=== PATIENT | female | born 1970 | race Caucasian/White ===

== ENCOUNTER 2019-09-24 07:02 | Inpatient (IN) | payer MEDICAID ==
[2019-09-24] VITALS (15 sets, daily range): BP systolic 101–128; BP diastolic 54–75
[~2019-09-24] VITALS: Ht 162.6 cm; Wt 91.1 kg
[2019-09-24] MEDS ORDERED: SPIR50 PO (07:17)
[2019-09-24] MEDS ORDERED: PARO10TA89 PO (07:17)
[2019-09-24] MEDS ORDERED: LABE100T8 PO (07:17)
[2019-09-24 07:48] LABS: BASOPHILS % (AUTO) 0.3 % (0.0-2.0); EOSINOPHILS % (AUTO) 0.9 % (1.0-6.0); HEMATOCRIT 23.2 % (36-46); HEMOGLOBIN 8.4 g/dL (12.0-16.0); LYMPHOCYTES # (AUTO) 0.7 K/uL (1.0-4.8); LYMPHOCYTES % (AUTO) 7.3 % (22.0-44.0); MEAN CORPUSCULAR HEMOGLOBIN 38.8 pg (26.0-34.0); MEAN CORPUSCULAR VOLUME 108 fL (80-100); MONOCYTES # (AUTO) 0.9 K/uL (0.1-1.0); MONOCYTES % (AUTO) 8.5 % (2.0-9.0); NEUTROPHILS # (AUTO) 8.4 K/uL (1.8-7.7); RED BLOOD CELL COUNT(AUTO) 2.15 MIL/uL (4.00-5.20); RED CELL DISTRIBUTION WIDTH 14.7 % (11.5-14.5)
[2019-09-24 07:57] LABS: ANION GAP 8 mmol/L (8-16); CALCIUM, TOTAL 8.1 mg/dL (8.8-10.5); CARBON DIOXIDE 23 mmol/L (22-29); CHLORIDE 103 mmol/L (98-107); CREATININE 0.94 mg/dL (0.60-1.30); GLOMERULAR FILTR. RATE CALC > 60 mL/min (>60); GLUCOSE,RANDOM 73 mg/dL (70-110); POTASSIUM 4.1 mmol/L (3.5-5.1); SODIUM SERUM 134 mmol/L (136-145); UREA NITROGEN, BLOOD 31 mg/dL (7-18)
[2019-09-24 08:03] LABS: INR 2.5 (0.9-1.1); PROTHROMBIN TIME 25.6 SEC (9.4-11.6)
[2019-09-24 08:05] LABS: TROPONIN I 0.52 ng/mL (0.00-0.05)
[2019-09-24 08:10] LABS: ALANINE AMINOTRANSFERASE 48 U/L (12-78); ALBUMIN 1.6 g/dL (3.4-5.0); ALKALINE PHOSPHATASE 117 U/L (46-116); ASPARTATE AMINOTRANSFERASE 84 U/L (15-37); BILIRUBIN,TOTAL 13.8 mg/dL (0.1-1.0); HCG,QUANTITATIVE < 1 mIU/mL (0-6); TOTAL PROTEIN, SERUM 5.7 g/dL (6.4-8.2)
[2019-09-24] MEDS ORDERED: 0.9% SODIUM CHLORIDE 10 ML SYRINGE IVP PRN (08:15)
[2019-09-24] MEDS ORDERED: MORPHINE SULFATE 4 MG/ML SYRINGE IVP PRN (08:15)
[2019-09-24 08:18] LABS: PLATELET COUNT (AUTO) 33 K/uL (150-450)
[2019-09-24] MEDS ORDERED: ONDANSETRON HCL 4 MG/2 ML VIAL IVP PRN (08:30)
[2019-09-24] MEDS ORDERED: ACETAMINOPHEN 325 MG TABLET PO PRN (08:30)
[2019-09-24] MEDS ORDERED: BISACODYL 10 MG RECTAL RECTAL SUPPOSITORY PR PRN (08:30)
[2019-09-24] MEDS: PHYTONADIONE 10 MG/1 ML AMP SQ SCH (08:57)
[2019-09-24] MEDS: PANTOPRAZOLE SODIUM 40 MG/VIAL IVP SCH (08:57)
[2019-09-24] MEDS ORDERED: SODIUM CHLORIDE 0.9% 1,000 ML IV ONE (12:15)
[2019-09-24 13:23] LABS: APPEARANCE,URINE CLOUDY (CLEAR); GLUCOSE, URINE (UA) NEGATIVE (NEGATIVE); KETONES,URINE 15 mg/dL (NEGATIVE); LEUKOCYTE ESTERASE ,URINE LARGE (NEGATIVE); NITRATE,URINE POSITIVE (NEGATIVE); OCCULT BLOOD,URINE LARGE (NEGATIVE); PH,URINE 5.5 (5.0-8.0); PROTEIN,URINE TRACE (NEGATIVE); UROBILINOGEN,URINE >=8.0 mg/dL (<=1.0)
[2019-09-24 13:26] LABS: BILIRUBIN,URINE PRELIM. POSITIVE (NEGATIVE)
[2019-09-24 13:29] LABS: BACTERIA,URINE Many /HPF (None Seen)
[2019-09-24 13:30] LABS: SQUAMOUS EPITHELIAL CELL,UR Few /LPF (None Seen)
[2019-09-24] MEDS ORDERED: DEXTROSE 50%-WATER 25 GM/50 ML SYRINGE IVP ONE ×2 (16:17→16:18)
[2019-09-24 16:27] LABS: GLUCOSE,POINT OF CARE 50 MG/DL (70-110)
[2019-09-24] MEDS: SODIUM CHLORIDE 3% 500 ML IV SCH (16:46)
[2019-09-24 16:50] LABS: BASOPHILS % (AUTO) 0.5 % (0.0-2.0); HEMATOCRIT 21.2 % (36-46); HEMOGLOBIN 7.4 g/dL (12.0-16.0); LYMPHOCYTES # (AUTO) 0.5 K/uL (1.0-4.8); MEAN CORPUSCULAR HEMOGLOBIN 38.2 pg (26.0-34.0); MEAN CORPUSCULAR VOLUME 109 fL (80-100); MONOCYTES # (AUTO) 0.1 K/uL (0.1-1.0); MONOCYTES % (AUTO) 1.9 % (2.0-9.0); NEUTROPHILS # (AUTO) 6.3 K/uL (1.8-7.7); PLATELET COUNT (AUTO) 41 K/uL (150-450); RED BLOOD CELL COUNT(AUTO) 1.94 MIL/uL (4.00-5.20); RED CELL DISTRIBUTION WIDTH 14.7 % (11.5-14.5)
[2019-09-24 16:56] LABS: NEUTROPHILS % (AUTO) 89.6 % (40.0-70.0)
[2019-09-24 17:13] LABS: ANION GAP 9 mmol/L (8-16); CALCIUM, TOTAL 7.7 mg/dL (8.8-10.5); CARBON DIOXIDE 22 mmol/L (22-29); CHLORIDE 104 mmol/L (98-107); CREATININE 0.88 mg/dL (0.60-1.30); GLOMERULAR FILTR. RATE CALC > 60 mL/min (>60); GLUCOSE,RANDOM 147 mg/dL (70-110); POTASSIUM 4.1 mmol/L (3.5-5.1); SODIUM SERUM 135 mmol/L (136-145); UREA NITROGEN, BLOOD 32 mg/dL (7-18)
[2019-09-24 17:17] LABS: ALANINE AMINOTRANSFERASE 38 U/L (12-78); ALBUMIN 1.5 g/dL (3.4-5.0); ALKALINE PHOSPHATASE 99 U/L (46-116); ASPARTATE AMINOTRANSFERASE 72 U/L (15-37); BILIRUBIN,TOTAL 12.5 mg/dL (0.1-1.0); TOTAL PROTEIN, SERUM 5.1 g/dL (6.4-8.2)
[2019-09-25] VITALS (12 sets, daily range): BP systolic 119–135; BP diastolic 68–85
[2019-09-25] MEDS: PHYTONADIONE 10 MG/1 ML AMP SQ SCH (08:25)
[2019-09-25] MEDS: PANTOPRAZOLE SODIUM 40 MG/VIAL IVP SCH (08:25)
[2019-09-25 08:30] LABS: EOSINOPHILS % (AUTO) 0.7 % (1.0-6.0); HEMATOCRIT 24.2 % (36-46); HEMOGLOBIN 8.3 g/dL (12.0-16.0); LYMPHOCYTES # (AUTO) 0.6 K/uL (1.0-4.8); LYMPHOCYTES % (AUTO) 5.4 % (22.0-44.0); MEAN CORPUSCULAR HEMOGLOBIN 37.9 pg (26.0-34.0); MEAN CORPUSCULAR HGB CONC 34.4 G/dL (31.0-37.0); MEAN CORPUSCULAR VOLUME 110 fL (80-100); MONOCYTES # (AUTO) 0.9 K/uL (0.1-1.0); MONOCYTES % (AUTO) 7.5 % (2.0-9.0); NEUTROPHILS # (AUTO) 10.3 K/uL (1.8-7.7); PLATELET COUNT (AUTO) 39 K/uL (150-450); RED CELL DISTRIBUTION WIDTH 14.5 % (11.5-14.5)
[2019-09-25 08:40] LABS: NEUTROPHILS % (AUTO) 86.4 % (40.0-70.0)
[2019-09-25 08:49] LABS: ALANINE AMINOTRANSFERASE 40 U/L (12-78); ALBUMIN 1.6 g/dL (3.4-5.0); ALKALINE PHOSPHATASE 108 U/L (46-116); ANION GAP 9 mmol/L (8-16); ASPARTATE AMINOTRANSFERASE 78 U/L (15-37); BILIRUBIN,TOTAL 15.9 mg/dL (0.1-1.0); CARBON DIOXIDE 22 mmol/L (22-29); CHLORIDE 108 mmol/L (98-107); CREATININE 0.89 mg/dL (0.60-1.30); GLOMERULAR FILTR. RATE CALC > 60 mL/min (>60); GLUCOSE,RANDOM 72 mg/dL (70-110); POTASSIUM 4.4 mmol/L (3.5-5.1); SODIUM SERUM 139 mmol/L (136-145); TOTAL PROTEIN, SERUM 5.7 g/dL (6.4-8.2); UREA NITROGEN, BLOOD 33 mg/dL (7-18)
[2019-09-25 08:52] LABS: INR 2.7 (0.9-1.1)
[2019-09-25] MEDS: CefTRIAXone 1 GM/DEXTROSE 50 ML IV SCH (09:23)
[2019-09-25 11:34] LABS: GLUCOSE,POINT OF CARE 71 MG/DL (70-110)
[2019-09-25] MEDS: SODIUM CHLORIDE 3% 500 ML IV SCH (15:35)
[2019-09-25] MEDS ORDERED: HUM PROTHROMBIN CPLX(PCC)4FACT 1,000 UNIT VIAL IVP ONE (18:00)
[2019-09-25] MEDS ORDERED: MORPHINE SULFATE 2 MG/ML SYRINGE IVP ONE (20:00)
[2019-09-25] MEDS ORDERED: SODIUM CHLORIDE 0.9% 250 ML IV ONE (22:56)
[2019-09-26 00:06] VITALS: BP 136/72
[2019-09-26 00:22] VITALS: BP 130/74
[2019-09-26 04:18] VITALS: BP 141/77
[2019-09-26 07:24] VITALS: BP 144/83
[2019-09-26] MEDS: SODIUM CHLORIDE 3% 500 ML IV SCH (08:54)
[2019-09-26] MEDS: PANTOPRAZOLE SODIUM 40 MG/VIAL IVP SCH (08:54)
[2019-09-26] MEDS: PHYTONADIONE 10 MG/1 ML AMP SQ SCH (08:55)
[2019-09-26] MEDS ORDERED: SODIUM CHLORIDE 0.9% 100 ML ONE (09:08)
[2019-09-26] MEDS: CefTRIAXone 1 GM/DEXTROSE 50 ML IV SCH (09:18)
[2019-09-26 11:29] VITALS: BP 131/76
[2019-09-26 15:19] LABS: PROTHROMBIN TIME 20.2 SEC (9.4-11.6)
[2019-09-26] MEDS ORDERED: ACETAMINOPHEN 325 MG TABLET PO PRN (18:35)
[2019-09-26] MEDS ORDERED: ACETAMINOPHEN 325 MG TABLET PO SCH (18:35)
[2019-09-26 19:55] VITALS: BP 144/91
[2019-09-27] VITALS (7 sets, daily range): BP systolic 139–168; BP diastolic 76–99
[2019-09-27] MEDS ORDERED: IPRATROPIUM BROMIDE 0.5 MG/2.5 ML NEB SOLUTION NEB PRN
[2019-09-27] MEDS ORDERED: ACETAMINOPHEN 325 MG TABLET PO PRN
[2019-09-27] MEDS ORDERED: ALBUTEROL SULFATE 2.5 MG/0.5 ML NEB SOLUTION NEB PRN
[2019-09-27] MEDS: SODIUM CHLORIDE 3% 500 ML IV SCH ×2 (02:58→02:59)
[2019-09-27] MEDS: CefTRIAXone 1 GM/DEXTROSE 50 ML IV SCH (09:12)
[2019-09-27] MEDS: PANTOPRAZOLE SODIUM 40 MG/VIAL IVP SCH (09:13)
[2019-09-27] MEDS: PHYTONADIONE 10 MG/1 ML AMP SQ SCH (09:13)
[2019-09-27] MEDS: MORPHINE SULFATE 2 MG/ML SYRINGE IVP PRN ×3 (09:42→17:17)
[2019-09-27 10:18] LABS: ABG A-A DIFF O2 46.1 mmHg (10-20.0); ABG BASE EXCESS -6.5 mmol/L (-2.0-3.0); ABG CARBOXYHEMOGLOBIN 2.7 % (0.0-1.5); ABG HCO3 19.8 mmol/L (22.0-26.0); ABG METHEMOGLOBIN 0.3 % (0.0-1.5); ABG OXYGEN CONTENT 10.9 mL/dL (15.0-23.0); ABG OXYGEN SATURATION 94.4 % (95.0-98.0); ABG OXYHEMOGLOBIN 91.6 % (94.0-100.0); ABG PCO2 25 mmHg (35-45); ABG PH 7.458 (7.35-7.450); ABG TOTAL HEMOGLOBIN 8.4 G/dL (12.0-18.0); O2 DEVICE,BLOOD GAS ROOM AIR (ROOM AIR); PO2, ARTERIAL BG 73.6 mmHg (84.0-92.0); SITE, BLOOD GAS RT RADIAL; SOURCE, BLOOD GAS ARTERIAL; TEMPERATURE, FAHRENHEIT, BG 98.6 FAHREN (96.0-98.6)
[2019-09-27 13:21] LABS: INR 2.4 (0.9-1.1); PROTHROMBIN TIME 24.4 SEC (9.4-11.6)
[2019-09-27] MEDS ORDERED: FUROSEMIDE 20 MG/2 ML VIAL IVP ONE (14:30)
[2019-09-27] MEDS ORDERED: LORazepam 2 MG/ML VIAL IVP PRN (17:00)
[2019-09-28 04:49] VITALS: BP 150/83
[2019-09-28] MEDS: MORPHINE SULFATE 2 MG/ML SYRINGE IVP PRN (06:12)
[2019-09-28 07:25] VITALS: BP 135/89
[2019-09-28 07:50] LABS: INR 2.9 (0.9-1.1); PROTHROMBIN TIME 29.4 SEC (9.4-11.6)
[2019-09-28] MEDS: PANTOPRAZOLE SODIUM 40 MG/VIAL IVP SCH (08:40)
[2019-09-28] MEDS: PHYTONADIONE 10 MG/1 ML AMP SQ SCH (08:41)
[2019-09-28] MEDS: CefTRIAXone 1 GM/DEXTROSE 50 ML IV SCH (08:41)
[2019-09-28 11:06] VITALS: BP 140/87
[2019-09-28 15:45] VITALS: BP 149/91
[2019-09-28 19:33] VITALS: BP 152/85
[2019-09-29 00:05] VITALS: BP 144/86
[2019-09-29 04:10] VITALS: BP 142/80
[2019-09-29] MEDS: MORPHINE SULFATE 2 MG/ML SYRINGE IVP PRN ×4 (04:31→23:46)
[2019-09-29 08:00] VITALS: BP 171/74
[2019-09-29] MEDS: PHYTONADIONE 10 MG/1 ML AMP SQ SCH (08:50)
[2019-09-29] MEDS: PANTOPRAZOLE SODIUM 40 MG/VIAL IVP SCH (08:50)
[2019-09-29] MEDS: CefTRIAXone 1 GM/DEXTROSE 50 ML IV SCH (09:04)
[2019-09-29 10:59] LABS: SODIUM SERUM 144 mmol/L (136-145)
[2019-09-29 11:09] LABS: INR 3.1 (0.9-1.1); PROTHROMBIN TIME 31.7 SEC (9.4-11.6)
[2019-09-29 12:00] VITALS: BP 138/95
[2019-09-29] MEDS ORDERED: CloNIDine HCL 0.1 MG TABLET PO ONE (12:30)
[2019-09-29 12:51] LABS: BASOPHILS % (AUTO) 0.5 % (0.0-2.0); HEMATOCRIT 23.7 % (36-46); HEMOGLOBIN 7.8 g/dL (12.0-16.0); MEAN CORPUSCULAR HEMOGLOBIN 39.2 pg (26.0-34.0); MEAN CORPUSCULAR HGB CONC 32.7 G/dL (31.0-37.0); MEAN CORPUSCULAR VOLUME 120 fL (80-100); MONOCYTES % (AUTO) 6.7 % (2.0-9.0); NEUTROPHILS # (AUTO) 12.5 K/uL (1.8-7.7); NEUTROPHILS % (AUTO) 83.8 % (40.0-70.0); PLATELET COUNT (AUTO) 41 K/uL (150-450); RED BLOOD CELL COUNT(AUTO) 1.98 MIL/uL (4.00-5.20); RED CELL DISTRIBUTION WIDTH 21.7 % (11.5-14.5)
[2019-09-29 12:58] LABS: ALANINE AMINOTRANSFERASE 39 U/L (12-78); ALBUMIN 1.6 g/dL (3.4-5.0); ALKALINE PHOSPHATASE 117 U/L (46-116); ANION GAP 12 mmol/L (8-16); ASPARTATE AMINOTRANSFERASE 73 U/L (15-37); BILIRUBIN,TOTAL 15.7 mg/dL (0.1-1.0); CALCIUM, TOTAL 8.3 mg/dL (8.8-10.5); CARBON DIOXIDE 18 mmol/L (22-29); CHLORIDE 115 mmol/L (98-107); CREATININE 0.62 mg/dL (0.60-1.30); GLOMERULAR FILTR. RATE CALC > 60 mL/min (>60); GLUCOSE,RANDOM 108 mg/dL (70-110); POTASSIUM 4.3 mmol/L (3.5-5.1); UREA NITROGEN, BLOOD 32 mg/dL (7-18)
[2019-09-29 15:00] VITALS: BP 144/77
[2019-09-29 20:01] VITALS: BP 149/85
[2019-09-29] MEDS: CloNIDine HCL 0.1 MG TABLET PO SCH ×2 (21:00→23:46)
[2019-09-30] VITALS (7 sets, daily range): BP systolic 147–164; BP diastolic 82–102
[2019-09-30] MEDS: CefTRIAXone 1 GM/DEXTROSE 50 ML IV SCH (08:01)
[2019-09-30] MEDS: PANTOPRAZOLE SODIUM 40 MG/VIAL IVP SCH (08:01)
[2019-09-30] MEDS: PHYTONADIONE 10 MG/1 ML AMP SQ SCH (08:01)
[2019-09-30] MEDS: CloNIDine HCL 0.1 MG TABLET PO SCH ×2 (08:01→19:58)
[2019-09-30 09:46] LABS: INR 2.9 (0.9-1.1)
[2019-09-30] MEDS ORDERED: PIPERACILLIN/TAZO 3.375 GM/D5W 50 ML IV SCH (10:00)
[2019-09-30] MEDS: MORPHINE SULFATE 2 MG/ML SYRINGE IVP PRN (14:43)
[2019-09-30] MEDS: GuaiFENesin [SUGAR-FREE] 200 MG/10 ML SOLUTION UDCUP PO PRN (21:23)
[2019-10-01 06:23] VITALS: BP 158/102
[2019-10-01 07:47] VITALS: BP 158/109
[2019-10-01] MEDS: PHYTONADIONE 10 MG/1 ML AMP SQ SCH (08:22)
[2019-10-01] MEDS: CloNIDine HCL 0.1 MG TABLET PO SCH (08:22)
[2019-10-01] MEDS: PANTOPRAZOLE SODIUM 40 MG/VIAL IVP SCH (08:22)
[2019-10-01] MEDS: GuaiFENesin [SUGAR-FREE] 200 MG/10 ML SOLUTION UDCUP PO PRN (08:23)
[2019-10-01] MEDS: MORPHINE SULFATE 2 MG/ML SYRINGE IVP PRN ×3 (10:24→17:21)
[2019-10-01 11:02] VITALS: BP 156/95
[2019-10-01 11:17] LABS: HEMATOCRIT 24.2 % (36-46); HEMOGLOBIN 7.9 g/dL (12.0-16.0); MEAN CORPUSCULAR HEMOGLOBIN 39.3 pg (26.0-34.0); MEAN CORPUSCULAR HGB CONC 32.6 G/dL (31.0-37.0); MEAN CORPUSCULAR VOLUME 121 fL (80-100); PLATELET COUNT (AUTO) 35 K/uL (150-450); RED BLOOD CELL COUNT(AUTO) 2.01 MIL/uL (4.00-5.20); RED CELL DISTRIBUTION WIDTH 24.7 % (11.5-14.5)
[2019-10-01 11:17] LABS: ANION GAP 11 mmol/L (8-16); CALCIUM, TOTAL 8.3 mg/dL (8.8-10.5); CARBON DIOXIDE 19 mmol/L (22-29); CHLORIDE 114 mmol/L (98-107); CREATININE 0.47 mg/dL (0.60-1.30); GLOMERULAR FILTR. RATE CALC > 60 mL/min (>60); GLUCOSE,RANDOM 76 mg/dL (70-110); POTASSIUM 4.7 mmol/L (3.5-5.1); SODIUM SERUM 144 mmol/L (136-145); UREA NITROGEN, BLOOD 26 mg/dL (7-18)
[2019-10-01 12:13] LABS: BAND NEUTROPHILS % (MANUAL) 1 % (0-5); EOSINOPHILS % (MANUAL) 3 % (1-6); LYMPHOCYTES % (MANUAL) 7 % (22-44); MONOCYTES % (MANUAL) 5 % (2-9); SEGMENTED NEUTROPHILS % 84 % (40-70)
== END 2019-10-01 18:50 | DRG 44 ==
LOC: EMS 07:02 → 5S 09-25 18:53
PROVIDERS: ADMIT Internal Medicine; ATTEND Internal Medicine
PROC: 30233L1 Transfusion of Nonautologous Fresh Plasma into Peripheral Vein, Percutaneous Approach (ICD-10-PCS; principal; 2019-09-25)
PROC: 30233L1 Transfusion of Nonautologous Fresh Plasma into Peripheral Vein, Percutaneous Approach (ICD-10-PCS; 2019-09-25)
PROC: 30233R1 Transfusion of Nonautologous Platelets into Peripheral Vein, Percutaneous Approach (ICD-10-PCS; 2019-09-25)
PROC: 30233R1 Transfusion of Nonautologous Platelets into Peripheral Vein, Percutaneous Approach (ICD-10-PCS; 2019-09-25)
PROC: 30233K1 Transfusion of Nonautologous Frozen Plasma into Peripheral Vein, Percutaneous Approach (ICD-10-PCS; 2019-09-25)
PROC: 30233K1 Transfusion of Nonautologous Frozen Plasma into Peripheral Vein, Percutaneous Approach (ICD-10-PCS; 2019-09-25)
DX: I61.9 Nontraumatic intracerebral hemorrhage, unspecified (principal); G93.6 Cerebral edema; G93.41 Metabolic encephalopathy; E43 Unspecified severe protein-calorie malnutrition; D68.4 Acquired coagulation factor deficiency; D69.6 Thrombocytopenia, unspecified; G81.91 Hemiplegia, unspecified affecting right dominant side; E86.0 Dehydration; K70.30 Alcoholic cirrhosis of liver without ascites; N39.0 Urinary tract infection, site not specified; B96.1 Klebsiella pneumoniae [K. pneumoniae] as the cause of diseases classified elsewhere; D53.9 Nutritional anemia, unspecified; F10.10 Alcohol abuse, uncomplicated; I10 Essential (primary) hypertension; K70.40 Alcoholic hepatic failure without coma; Z51.5 Encounter for palliative care; Z66 Do not resuscitate; Z82.49 Family history of ischemic heart disease and other diseases of the circulatory system; Z87.891 Personal history of nicotine dependence
CPT/HCPCS: 36430; 70450; 82805; 82948; 84295; 86850; 86900; 86901; 86927; 87086; 93005; 93306; 97162; 99291; 99292; C9113; J0696; J1940; J2270; J2543; J3430; J7030; J7050; P9017; P9035